=== PATIENT | male | born 1950 | race Two or more races ===

== ENCOUNTER 2024-02-18 14:49 | Inpatient (IN) | payer MEDICARE, OTHER ==
[~2024-02-18] VITALS: Ht 170.2 cm; Wt 82.6 kg
[2024-02-18 15:36] LABS: BASOPHILS # (AUTO) 0.1 K/UL (0.0-0.2); EOSINOPHILS # (AUTO) 0.1 K/uL (0.0-0.7); EOSINOPHILS % (AUTO) 2.2 % (0.0-7.0); HEMATOCRIT 32.9 % (36.7-47.1); LYMPHOCYTES # (AUTO) 1.4 K/uL (0.8-4.8); LYMPHOCYTES % (AUTO) 25.7 % (20.5-51.5); MEAN CORPUSCULAR HEMOGLOBIN 36.7 uug (23.8-33.4); MEAN CORPUSCULAR HGB CONC 33 g/dL (32.5-36.3); MEAN CORPUSCULAR VOLUME 110.1 fL (73.0-96.2); MONOCYTES # (AUTO) 0.6 K/uL (0.1-1.30); MONOCYTES % (AUTO) 11.2 % (0.0-11.0); NEUTROPHILS # (AUTO) 3.4 K/uL (1.8-8.9); NEUTROPHILS % (AUTO) 59.9 % (38.5-71.5); PLATELET COUNT (AUTO) 166 K/uL (152-348); RED BLOOD CELL COUNT(AUTO) 2.99 MIL/uL (4.06-5.63); RED CELL DISTRIBUTION WIDTH 14.3 % (12.1-16.2); WHITE BLOOD COUNT (AUTO) 5.6 K/uL (3.6-10.2)
[2024-02-18 15:46] LABS: CALCIUM 8.1 mg/dL (8.5-10.1); CARBON DIOXIDE 18 mmol/L (21-32); CHLORIDE 111 mmol/L (98-107); CREATININE 1.6 mg/dL (0.6-1.3); GLUCOSE 153 mg/dL (74-106); POTASSIUM 4.2 mmol/L (3.5-5.1); SODIUM SERUM 141 mmol/L (136-145); UREA NITROGEN, BLOOD 27 mg/dL (7-18)
[2024-02-18 15:49] LABS: DIFFERENTIAL COMMENT 1
[2024-02-18 15:53] LABS: ALANINE AMINOTRANSFERASE 28 U/L (16-63); ALBUMIN 2.4 g/dL (3.4-5.0); ALKALINE PHOSPHATASE 218 U/L (50-136); ASPARTATE AMINOTRANSFERASE 27 U/L (15-37); BILIRUBIN,DIRECT 0.5 mg/dL (0.0-0.2); TOTAL PROTEIN, SERUM 7.4 g/dL (6.4-8.2)
[2024-02-18 15:59] LABS: *BILIRUBIN,URIN NEGATIVE (NEGATIVE); *BLOOD, URINE NEGATIVE (NEGATIVE); *CLARITY,URINE CLEAR (CLEAR); *COLOR,URINE YELLOW (YELLOW); *KETONES,URINE TRACE (NEGATIVE); *PROTEIN,URINE TRACE (NEGATIVE); *UROBILINOGEN,URINE 0.2 E.U./dl (NORMAL); LEUKOCYTE ESTERASE ,URINE 1+ (NEGATIVE); NITRITE, URINE NEGATIVE (NEGATIVE); PH,URINE 5.5 (5.0-8.0); UGLUCOSE NEGATIVE (NEGATIVE)
[2024-02-18 16:08] LABS: RBC,URINE NONE SEEN /HPF (0-3)
[2024-02-18 16:09] LABS: BACTERIA,URINE MANY /HPF (NONE SEEN); SQUAMOUS EPITHELIAL CELL,UR FEW /HPF (NONE SEEN); WBC,URINE 50-80 /HPF (0-3)
[2024-02-18 16:10] LABS: ETHANOL < 3 MG/DL (0-10)
[2024-02-18 16:14] LABS: *AMPHETAMINE, URINE NEGATIVE (NEGATIVE); *BARBITURATE, URINE NEGATIVE (NEGATIVE); *BENZODIAZEPINE, URINE NEGATIVE (NEGATIVE); *CANNABINOID, URINE NEGATIVE (NEGATIVE); *COCCAINE, URINE NEGATIVE (NEGATIVE); *OPIATE, URINE NEGATIVE (NEGATIVE); *PHENCYCLIDINE SCREEN,URINE NEGATIVE (NEGATIVE); FENTANYL, URINE NEGATIVE (NEGATIVE)
[2024-02-18] MEDS ORDERED: OXYC5CAP18 PO (16:35)
[2024-02-18] MEDS ORDERED: ATOR10TA PO (16:35)
[2024-02-18] MEDS ORDERED: QUET25TA PO (16:35)
[2024-02-18] MEDS ORDERED: MAGN400O6 PO (16:35)
[2024-02-18] MEDS ORDERED: GABA600T12 PO (16:35)
[2024-02-18] MEDS ORDERED: NA P133E RC (16:35)
[2024-02-18] MEDS ORDERED: CARB30DR18 EACHEYE (16:35)
[2024-02-18] MEDS ORDERED: ACET325C7 PO (16:35)
[2024-02-18] MEDS ORDERED: POLY17PO4 PO (16:35)
[2024-02-18] MEDS ORDERED: MAG355OR18 PO (16:35)
[2024-02-18] MEDS ORDERED: SODI88SP18 BNOSTRILS (16:35)
[2024-02-18] MEDS ORDERED: POLY15DR31 EACHEYE (16:35)
[2024-02-18] MEDS ORDERED: LOSA25TA27 PO (16:35)
[2024-02-18] MEDS ORDERED: VOLTAREN GEL 1% (16:35)
[2024-02-18] MEDS ORDERED: ASPI81TA31 PO (16:35)
[2024-02-18] MEDS ORDERED: MIRT-121 PO (16:35)
[2024-02-18] MEDS ORDERED: BISA10SU61 RC (16:35)
[2024-02-18] MEDS ORDERED: ZOLP5TAB2 PO (16:35)
[2024-02-18] MEDS ORDERED: LORAZEPAM 0.5 MG TABLET ONE (17:05)
[2024-02-18] MEDS ORDERED: SULFAMETH/TRIMETH 800/160 MG TABLET ONE (17:06)
[2024-02-18] MEDS: SULFAMETH/TRIMETH 800/160 MG TABLET PO ONE (17:11)
[2024-02-18] MEDS: LORAZEPAM 0.5 MG TABLET PO ONE (17:11)
[2024-02-18] MEDS: OLOPATADINE 0.1% OPHT DROP 5 ML BOTTLE EACHEYE ONE (17:45)
[2024-02-18] MEDS ORDERED: MAG HYDROX/AL HYDROX/SIMETH 30 ML LIQUID UDC PO PRN (21:00)
[2024-02-18 21:10] VITALS: BP 147/100; TEMP 98; O2SAT 97
[2024-02-18] MEDS: BLOOD SUGAR DIAGNOSTIC 1 EACH STRIP VI ONE (21:46)
[2024-02-18] MEDS: ZOLPIDEM 5 MG TABLET PO PRN (21:58)
[2024-02-19] MEDS: ACETAMINOPHEN 325 MG TABLET PO PRN (02:52)
[2024-02-19] MEDS ORDERED: DICL100G31 TP (06:54)
[2024-02-19 08:00] VITALS: BP 108/44; TEMP 98.6; O2SAT 98
[2024-02-19] MEDS ORDERED: HOME MED MISCELLANEOUS XX SCH ×3 (13:15)
[2024-02-19] MEDS ORDERED: BISACODYL 10 MG SUPP.RECT RC PRN (13:15)
[2024-02-19] MEDS ORDERED: FLEET ENEMA 133 ML BOTTLE RC PRN (13:15)
[2024-02-19] MEDS ORDERED: MAG HYDROX/AL HYDROX/SIMETH 30 ML LIQUID UDC PO PRN (13:15)
[2024-02-19] MEDS ORDERED: ACETAMINOPHEN 325 MG TABLET PO PRN (13:15)
[2024-02-19] MEDS ORDERED: MAGNESIUM HYDROXIDE 30 ML LIQUID UDC PO PRN (13:15)
[2024-02-19] MEDS ORDERED: POLYVINYL ALCOHOL OPHT DROPS 15 ML BOTTLE EACHEYE PRN (14:00)
[2024-02-19] MEDS: CEphaleXIN 500 MG CAPSULE PO SCH (14:20)
[2024-02-19] MEDS: ASPIRIN 81 MG TAB.CHEW PO SCH (14:20)
[2024-02-19] MEDS: GABAPENTIN 400 MG CAPSULE PO SCH (16:34)
[2024-02-19] MEDS ORDERED: REMEDY ESSENTIAL ZINC PASTE 113 GM TOP PRN (17:00)
[2024-02-19 20:00] VITALS: BP 110/50; TEMP 97.8; O2SAT 99
[2024-02-19] MEDS: QUETIAPINE FUMARATE 25 MG TABLET PO SCH (21:07)
[2024-02-19] MEDS: ATORVASTATIN 10 MG TABLET PO SCH (21:07)
[2024-02-19] MEDS: DIVALPROEX 125 MG TABLET.DR PO SCH (21:07)
[2024-02-20 07:43] LABS: BASOPHILS # (AUTO) 0.1 K/UL (0.0-0.2); EOSINOPHILS # (AUTO) 0.3 K/uL (0.0-0.7); EOSINOPHILS % (AUTO) 6.6 % (0.0-7.0); HEMATOCRIT 34.3 % (36.7-47.1); HEMOGLOBIN 11.7 g/dL (12.5-16.3); LYMPHOCYTES # (AUTO) 2.1 K/uL (0.8-4.8); LYMPHOCYTES % (AUTO) 40.3 % (20.5-51.5); MEAN CORPUSCULAR HEMOGLOBIN 37.5 uug (23.8-33.4); MEAN CORPUSCULAR HGB CONC 34 g/dL (32.5-36.3); MEAN CORPUSCULAR VOLUME 109.8 fL (73.0-96.2); MONOCYTES # (AUTO) 0.6 K/uL (0.1-1.30); MONOCYTES % (AUTO) 10.9 % (0.0-11.0); NEUTROPHILS # (AUTO) 2.1 K/uL (1.8-8.9); NEUTROPHILS % (AUTO) 41.2 % (38.5-71.5); PLATELET COUNT (AUTO) 157 K/uL (152-348); RED BLOOD CELL COUNT(AUTO) 3.12 MIL/uL (4.06-5.63); RED CELL DISTRIBUTION WIDTH 13.8 % (12.1-16.2); WHITE BLOOD COUNT (AUTO) 5.2 K/uL (3.6-10.2)
[2024-02-20 07:49] LABS: DIFFERENTIAL COMMENT 1
[2024-02-20 07:56] LABS: ALANINE AMINOTRANSFERASE 29 U/L (16-63); ALBUMIN 2.4 g/dL (3.4-5.0); ALKALINE PHOSPHATASE 218 U/L (50-136); ASPARTATE AMINOTRANSFERASE 28 U/L (15-37); CARBON DIOXIDE 20 mmol/L (21-32); CHLORIDE 112 mmol/L (98-107); CREATINE KINASE, TOTAL 115 U/L (39-308); CREATININE 1.5 mg/dL (0.6-1.3); GLUCOSE 80 mg/dL (74-106); MAGNESIUM 2.4 mg/dL (1.8-2.4); PHOSPHOROUS 3.5 mg/dL (2.5-4.9); POTASSIUM 4.4 mmol/L (3.5-5.1); SODIUM SERUM 142 mmol/L (136-145); TOTAL PROTEIN, SERUM 7.3 g/dL (6.4-8.2); UREA NITROGEN, BLOOD 23 mg/dL (7-18)
[2024-02-20 08:22] VITALS: BP 114/44; TEMP 98.3; O2SAT 97
[2024-02-20] MEDS: LOSARTAN POTASSIUM 25 MG TABLET PO SCH (08:26)
[2024-02-20] MEDS: MIRALAX 17 GM POWD.PACK PO SCH (08:27)
[2024-02-20] MEDS ORDERED: NORMAL SALINE NASAL 45 ML BOTTLE NS PRN (09:00)
[2024-02-20 16:20] VITALS: BP 100/53; TEMP 98.2; O2SAT 97
[2024-02-20 21:10] VITALS: BP 136/70; TEMP 98.2; O2SAT 99
[2024-02-20] MEDS: NITROFURANTOIN/NITROFURAN MAC 100 MG CAPSULE PO SCH (21:15)
[2024-02-21] MEDS: OXYCODONE/APAP 5-325 MG TABLET PO PRN (02:06)
[2024-02-21 08:14] VITALS: BP 96/51; TEMP 98.3; O2SAT 96
[2024-02-21 09:08] LABS: PTH, INTACT 42 pg/mL (15-65)
[2024-02-21] MEDS: MUPIROCIN 2% OINT 22 GM TUBE NS SCH (09:30)
[2024-02-21 16:28] VITALS: BP 113/62; TEMP 98.2; O2SAT 96
[2024-02-21] MEDS: DIVALPROEX 125 MG TABLET.DR PO SCH (16:51)
[2024-02-21 20:15] VITALS: BP 108/56; TEMP 98.1; O2SAT 95
[2024-02-22 09:33] VITALS: BP 93/41; TEMP 98.1; O2SAT 98
[2024-02-22 16:45] VITALS: BP 110/66; TEMP 98; O2SAT 96
[2024-02-22 20:06] VITALS: BP 106/58; TEMP 98.1; O2SAT 95
[2024-02-23 08:00] VITALS: BP 128/94; TEMP 97.5; O2SAT 99
[2024-02-23] MEDS: QUETIAPINE FUMARATE 25 MG TABLET PO PRN (08:57)
[2024-02-23 16:36] VITALS: BP 121/55; TEMP 97.8; O2SAT 98
[2024-02-23 20:10] VITALS: BP 134/53; TEMP 97.8; O2SAT 99
[2024-02-24 08:00] VITALS: BP 111/53; TEMP 97.6; O2SAT 99
[2024-02-24 15:10] LABS: A/G RATIO 0.6 (0.7-1.7); ALBUMIN 2.6 g/dL (2.9-4.4); ALPHA-1-GLOBULIN 0.3 g/dL (0.0-0.4); ALPHA-2-GLOBULIN 0.6 g/dL (0.4-1.0); GAMMA GLOBULIN 2.2 g/dL (0.4-1.8); GLOBULIN, TOTAL 4.1 g/dL (2.2-3.9); M-SPIKE Not Observed g/dL (Not Observed)
[2024-02-24 16:13] VITALS: BP 115/61; TEMP 98; O2SAT 99
[2024-02-24 20:00] VITALS: BP 115/57; TEMP 98; O2SAT 97
[2024-02-24] MEDS: QUETIAPINE FUMARATE 25 MG TABLET PO SCH (20:26)
[2024-02-24] MEDS: MAGNESIUM HYDROXIDE 30 ML LIQUID UDC PO PRN (20:26)
[2024-02-24] MEDS: DOCUSATE SODIUM 100 MG CAPSULE PO SCH (20:26)
[2024-02-25 07:52] VITALS: BP 124/37; TEMP 98.6; O2SAT 97
[2024-02-25] MEDS: DIVALPROEX 250 MG TABLET.DR PO SCH (13:45)
[2024-02-25] MEDS ORDERED: DIVALPROEX 125 MG TABLET.DR PO SCH (14:00)
[2024-02-25 16:05] VITALS: BP 109/50; TEMP 97; O2SAT 97
[2024-02-25 20:00] VITALS: BP 106/48; TEMP 97.7; O2SAT 100
[2024-02-26 16:16] VITALS: BP 97/55; TEMP 97.6; O2SAT 96
[2024-02-26 20:00] VITALS: BP 105/67; TEMP 98
[2024-02-27 08:25] VITALS: BP 92/51; TEMP 97.8; O2SAT 96
[2024-02-27 20:00] VITALS: BP 104/58; TEMP 98; O2SAT 94
[2024-02-27] MEDS: QUETIAPINE FUMARATE 25 MG TABLET PO SCH (20:47)
[2024-02-28 07:41] LABS: ALANINE AMINOTRANSFERASE 34 U/L (16-63); ALBUMIN 2.4 g/dL (3.4-5.0); ALKALINE PHOSPHATASE 231 U/L (50-136); ASPARTATE AMINOTRANSFERASE 35 U/L (15-37); BILIRUBIN,TOTAL 0.7 mg/dL (0.2-1.0); CALCIUM 8.1 mg/dL (8.5-10.1); CARBON DIOXIDE 25 mmol/L (21-32); CHLORIDE 106 mmol/L (98-107); CREATININE 1.3 mg/dL (0.6-1.3); GLUCOSE 77 mg/dL (74-106); POTASSIUM 4.8 mmol/L (3.5-5.1); SODIUM SERUM 137 mmol/L (136-145); TOTAL PROTEIN, SERUM 7.4 g/dL (6.4-8.2); UREA NITROGEN, BLOOD 25 mg/dL (7-18); VALPROIC ACID 51 ug/mL (50-100)
[2024-02-28 10:18] VITALS: BP 117/72; TEMP 98; O2SAT 98
[2024-02-28 16:27] VITALS: BP 96/46; TEMP 98; O2SAT 98
[2024-02-28 20:07] VITALS: BP 111/61; TEMP 98.1; O2SAT 96
[2024-02-28] MEDS: DIVALPROEX 125 MG TABLET.DR PO SCH (20:45)
[2024-02-28] MEDS ORDERED: DIVALPROEX 250 MG TABLET.DR PO SCH (21:00)
[2024-02-29 07:56] VITALS: BP 97/43; TEMP 98.4; O2SAT 97
[2024-02-29 08:51] VITALS: BP 106/44
[2024-02-29 16:08] VITALS: BP 122/60; TEMP 98.3; O2SAT 97
[2024-02-29 20:00] VITALS: BP 125/61; TEMP 98; O2SAT 100
[2024-03-01 07:30] VITALS: BP 113/46; TEMP 98.2; O2SAT 100
[2024-03-01] MEDS: QUETIAPINE FUMARATE 25 MG TABLET PO SCH ×2 (08:16→20:26)
[2024-03-01 15:23] VITALS: BP 96/52; TEMP 98.2; O2SAT 96
[2024-03-01 20:00] VITALS: BP 116/41; TEMP 98.2; O2SAT 97
[2024-03-02 07:58] VITALS: BP 126/53; TEMP 97.8; O2SAT 98
[2024-03-02 15:51] VITALS: BP 140/68; TEMP 98; O2SAT 100
[2024-03-02 20:00] VITALS: BP 107/56; TEMP 98; O2SAT 98
== END 2024-03-03 14:45 | DRG 885 ==
LOC: ER 15:33 → GPS 20:56
PROVIDERS: ADMIT Psychiatry & Neurology Psychiatry; ATTEND Nurse Practitioner Acute Care
DX: F31.5 Bipolar disorder, current episode depressed, severe, with psychotic features (principal); E43 Unspecified severe protein-calorie malnutrition; N17.0 Acute kidney failure with tubular necrosis; N18.9 Chronic kidney disease, unspecified; B95.2 Enterococcus as the cause of diseases classified elsewhere; I69.354 Hemiplegia and hemiparesis following cerebral infarction affecting left non-dominant side; N39.0 Urinary tract infection, site not specified; E87.20 Acidosis, unspecified; J84.9 Interstitial pulmonary disease, unspecified; E78.5 Hyperlipidemia, unspecified; N40.0 Benign prostatic hyperplasia without lower urinary tract symptoms; Z68.28 Body mass index [BMI] 28.0-28.9, adult; E66.9 Obesity, unspecified; F10.11 Alcohol abuse, in remission; R41.9 Unspecified symptoms and signs involving cognitive functions and awareness; G62.9 Polyneuropathy, unspecified; G89.29 Other chronic pain; I12.9 Hypertensive chronic kidney disease with stage 1 through stage 4 chronic kidney disease, or unspecified chronic kidney disease; Z86.11 Personal history of tuberculosis; R13.11 Dysphagia, oral phase; K74.60 Unspecified cirrhosis of liver; M16.0 Bilateral primary osteoarthritis of hip; Z91.199 Patient's noncompliance with other medical treatment and regimen due to unspecified reason; Z22.322 Carrier or suspected carrier of Methicillin resistant Staphylococcus aureus; E88.09 Other disorders of plasma-protein metabolism, not elsewhere classified; D53.9 Nutritional anemia, unspecified
CPT/HCPCS: 36415; 76770; 80164; 83735; 83970; 84100; 84155; 84165; 85025; 94640; G0480; J3490